=== PATIENT | male | born 1990 | race Caucasian/White ===

== ENCOUNTER 2019-10-24 15:43 | Emergency (ER) | payer OTHER, MEDICAID, SELFPAY ==
[2019-10-24 15:49] VITALS: BP 139/80; PULSE 92; RESP 18; TEMP 36.3; O2SAT 98; BMI 39.3
--- NOTE | 2019-10-24 15:56 | DI.RAD.S_ITS ---
PROCEDURE: XR CHEST 2V INDICATIONS: COUGH 4 DAYS TECHNIQUE: 2 views of the chest were acquired. COMPARISON: None. FINDINGS: Surgical changes and devices: None. Lungs and pleura: Lungs are clear. No pleural effusions or pneumothorax. Mediastinum: Mediastinal contours are normal. Heart size is normal. Bones and chest wall: No suspicious bony abnormalities. Soft tissues appear unremarkable. IMPRESSION: No acute cardiopulmonary process is evident. Dictated by: Demetris Castillo M.D. on 10/24/2019 at 15:28 Approved by: Demetris Castillo M.D. on 10/24/2019 at 15:31
[2019-10-24 16:39] LABS: Influenza A - CEPHEID Flu A NEGATIVE (NEGATIVE); Influenza B - CEPHEID Flu B NEGATIVE (NEGATIVE)
[2019-10-24] MEDS: ALBUTEROL/IPRATROPIUM 3 ML AMPUL INH (19:11)
[2019-10-24 19:15] VITALS: PULSE 91; RESP 20; O2SAT 95
[2019-10-24] MEDS: predniSONE 20 MG TABLET 40 MG PO (19:40)
--- NOTE | 2019-10-24 19:49 | PC.NURSE ---
Addendum entered by Zoraida Malik R.N. 10/24/19 19:56: Lung sounds grossly clear, occasional wheeze Original Note: MDI teaching done by RT Talbert pt verbalized understanding.
[2019-10-24 19:53] VITALS: BP 146/86; PULSE 85; RESP 16; TEMP 36.9; O2SAT 98
--- NOTE | 2019-10-24 20:48 | ED_ITS ---
HPI - URI/Sore Throat <ISIS Hill - Last Filed: 10/24/19 20:53> General Chief Complaint: Upper Respiratory Symptoms Stated Complaint: SOB COUGH MUCUS IN THE CHEST Time Seen by Provider: 10/24/19 18:57 Source: patient Mode of arrival: Ambulatory Limitations: no limitations History of Present Illness HPI Narrative: The patient is a 28-year-old male nonsmoker with history asthma who presents with a chief complaint of a cough for for 5 days. He is using his albuterol, not always with a spacer. He denies any fevers, states he feels as though his cough is stuck in his chest. Complains of transient sore throat and ear pain. States that his chest hurts when he coughs. He does take QVAR. He has not followed up with primary care provider. 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 Denies any abdominal pain nausea vomiting or diarrhea. Related Data Home Medications Medication Instructions Recorded Confirmed albuterol sulfate [Ventolin HFA] 1 puff INHALATION PRN PRN #0 08/21/17 10/24/19 lansoprazole 30 mg PO DAILY #0 08/21/17 10/24/19 beclomethasone dipropionate [Qvar 1 inh INHALATION BID 10/24/19 10/24/19 RediHaler] betamethasone dipropionate 1 applic TOPICAL DIRECTED 10/24/19 10/24/19 escitalopram oxalate 10 mg PO DAILY 10/24/19 levothyroxine 25 mcg PO DAILY 10/24/19 10/24/19 Previous Rx's Medication Instructions Recorded albuterol sulfate 2.5 mg/0.5 mL 2.5 mg INHALATION Q4-6H #30 each 07/01/19 solution for nebulization prednisone 40 mg PO DAILY #10 tab 10/24/19 Allergies Allergy/AdvReac Type Severity Reaction Status Date / Time ciprofloxacin [From CIPRO] Allergy Unknown Verified 10/24/19 15:49 sulfamethoxazole Allergy Unknown Verified 10/24/19 15:49 [From BACTRIM] trimethoprim [From BACTRIM] Allergy Unknown Verified 10/24/19 15:49 Review of Systems <ISIS Hill - Last Filed: 10/24/19 20:53> Review of Systems Narrative: GENERAL: Denies chills, fatigue, malaise, fever, sweats. HEENT: See HPI RESPIRATORY: See HPI CARDIOVASCULAR: Denies chest pain, palpitations, orthopnea, edema, GASTROINTESTINAL: Denies nausea, vomiting, abdominal pain, diarrhea, constipation, melena. : Denies dysuria, frequency, incontinence, hematuria, urinary retention. MUSCULOSKELETAL: denies weakness, joint pain, or bony pain SKIN: Denies rash, skin lesions, or other NEUROLOGIC: Denies weakness, headache, numbness, change in speech, confusion, seizures, incoordination. PSYCHIATRIC: No concerning psychosocial issues. 12 point review of systems is negative except for those stated above Patient History [facility] - Last Filed: 10/24/19 20:53> Social History Smoking Status: Never smoker Smoking Status: Never smoker Substance Use Type: does not use Exam <[facility] - Last Filed: 10/24/19 20:53> Narrative Exam Narrative: GENERAL: This is a well-nourished, well-developed patient, no acute distress HEAD: Atraumatic. Normocephalic. No temporal or scalp tenderness. EYES: Pupils equal round and reactive. Extraocular motions intact. No scleral icterus. No injection or drainage. ENT: Nose without bleeding, purulent drainage or septal hematoma. Throat without erythema, tonsillar hypertrophy or exudate. Uvula midline. Airway patent. Bilateral TMs pearly leary. NECK: Trachea midline. No JVD or lymphadenopathy. Supple, nontender, no meningeal signs. CARDIOVASCULAR: Regular rate and rhythm RESPIRATORY: Diffuse expiratory wheezes to auscultation. Breath sounds equal bilaterally. No rales or rhonchi. Slight cough on exam. GASTROINTESTINAL: Abdomen soft, non-tender, nondistended. No hepato- splenomegaly, or palpable masses. No guarding. EXTREMITIES: No clubbing, cyanosis, or edema. No joint tenderness, effusion, or edema noted. BACK: Nontender without deformity or crepitance. No flank tenderness. NEURO: AOx3. SKIN: No rash or erythema. Initial Vital Signs Initial Vital Signs: Vital Signs Temperature 97.4 F L 10/24/19 15:49 Pulse Rate 92 H 10/24/19 15:49 Respiratory Rate 18 10/24/19 15:49 Blood Pressure 139/80 10/24/19 15:49 Pulse Oximetry 98 10/24/19 15:49 <Bill Parker DO - Last Filed: 10/24/19 22:07> Initial Vital Signs Initial Vital Signs: Vital Signs Temperature 97.4 F L 10/24/19 15:49 Pulse Rate 92 H 10/24/19 15:49 Respiratory Rate 18 10/24/19 15:49 Blood Pressure 139/80 10/24/19 15:49 Pulse Oximetry 98 10/24/19 15:49 Course <ISIS Hill - Last Filed: 10/24/19 20:53> Orders Ordered: ED Orders 10/24/19 15:56 XR chest 2V Stat 10/24/19 16:00 Flu test [Influenza A & B (PCR)] Stat Discontinued Medications Albuterol/Ipratropium (Duoneb) 3 ml INH NOW ONE Stop: 10/24/19 19:08 Last Admin: 10/24/19 19:11 Dose: 3 ml Documented by: KRISTI Prednisone (Deltasone) 40 mg PO NOW ONE Stop: 10/24/19 19:10 Last Admin: 10/24/19 19:40 Dose: 40 mg Documented by: NICHOLAS Vital Signs Vital signs: Vital Signs - 8 hr 10/24/19 15:49 10/24/19 19:15 10/24/19 19:53 Temperature 97.4 F L 98.5 F Pulse Rate 92 H 91 H 85 Respiratory Rate 18 20 16 Blood Pressure 139/80 Blood Pressure [Right Arm] 146/86 H Pulse Oximetry 98 95 98 <DO Sarah Miguel Last Filed: 10/24/19 22:07> Orders Ordered: ED Orders 10/24/19 15:56 XR chest 2V Stat 10/24/19 16:00 Flu test [Influenza A & B (PCR)] Stat Discontinued Medications Albuterol/Ipratropium (Duoneb) 3 ml INH NOW ONE Stop: 10/24/19 19:08 Last Admin: 10/24/19 19:11 Dose: 3 ml Documented by: KRISTI Prednisone (Deltasone) 40 mg PO NOW ONE Stop: 10/24/19 19:10 Last Admin: 10/24/19 19:40 Dose: 40 mg Documented by: NICHOLAS Vital Signs Vital signs: Vital Signs - 8 hr 10/24/19 15:49 10/24/19 19:15 10/24/19 19:53 Temperature 97.4 F L 98.5 F Pulse Rate 92 H 91 H 85 Respiratory Rate 18 20 16 Blood Pressure 139/80 Blood Pressure [Right Arm] 146/86 H Pulse Oximetry 98 95 98 MDM - URI/Sore Throat <VALERY Hill - Last Filed: 10/24/19 20:53> Lab Data Labs: Lab Results 10/24/19 Range/Units 16:00 Influenza A (RT-PCR) Flu a negative (NEGATIVE) Influenza B (RT-PCR) Flu b negative (NEGATIVE) Imaging Data Chest x-ray: Radiologist's Impression: [address] [place] [id number] XRay Report Signed Patient: Paco Steel TMR#: [id number] : 1990Acct:[id number] Age/Sex: 28 / MDate of Service: 10/24/19 Loc: ED Accession Number: [id number] Procedure: XR chest 2V Ordering Provider: Megan Pace D.O. PROCEDURE: XR CHEST 2V INDICATIONS: COUGH 4 DAYS TECHNIQUE: 2 views of the chest were acquired. COMPARISON: None. FINDINGS: Surgical changes and devices: None. Lungs and pleura: Lungs are clear. No pleural effusions or pneumothorax. Mediastinum: Mediastinal contours are normal. Heart size is normal. Bones and chest wall: No suspicious bony abnormalities. Soft tissues appear unremarkable. IMPRESSION: No acute cardiopulmonary process is evident. Dictated by: Demetris Castillo M.D. on 10/24/2019 at 15:28 Approved by: Demetris Castillo M.D. on 10/24/2019 at 15:31 [facility] Narrative Medical decision making narrative: The patient is a 28-year-old male who presents with a chief complaint of worsening wheezing and concern for fluid pneumonia. Flu test negative. X-ray shows no pneumonia. He is hemodynamically stable the emergency department. Did receive therapy from respiratory therapy as well as a nebulizer. Discussed at length using a spacer with every inhaler administration. Did do a burst of steroids. Discussed at length follow up with primary care provider coming back to the emergency department for any acute concerns such as inability keep down fluids or severe difficulty breathing. Patient has no questions or concerns upon discharge and states understanding of return precautions as well as follow-up care. <Bill Parker DO - Last Filed: 10/24/19 22:07> Lab Data Labs: Lab Results 10/24/19 Range/Units 16:00 Influenza A (RT-PCR) Flu a negative (NEGATIVE) Influenza B (RT-PCR) Flu b negative (NEGATIVE) Discharge Plan Departure Patient Disposition: Home Clinical Impression: Asthma exacerbation Qualifiers: Asthma severity: unspecified severity Asthma persistence: intermittent Qualified Code(s): J45.21 - Mild intermittent asthma with (acute) exacerbation Discharge Date/Time: 10/24/19 20:10 Instructions: DI for Asthma -- Adult, How to Use Metered-Dose Inhalers Activity Restrictions/Additional Instructions: I sent a prescription of prednisone to [facility] in [place] Please start this tomorrow. Please also use a spacer with your inhalers all the time. Please follow-up with primary care provider in the next few days Please come back to the emergency department for any acute concerns Prescriptions: New prednisone 20 mg tablet 40 mg PO DAILY Qty: 10 RF: 0 No Action albuterol sulfate 2.5 mg/0.5 mL solution for nebulization 2.5 mg INHALATION Q4-6H Qty: 30 RF: 0 lansoprazole 30 MG capsule,delayed release(DR/EC) 30 mg PO DAILY Qty: 0 RF: 0 albuterol sulfate [Ventolin HFA] 90 MCG/PUFF HFA aerosol inhaler 1 puff inhalation PRN PRN (Reason: Shortness Of Breath) Qty: 0 RF: 0 levothyroxine 25 mcg tablet 25 mcg PO DAILY RF: 0 betamethasone dipropionate 0.05 % cream 1 applic TOPICAL DIRECTED RF: 0 escitalopram oxalate 10 mg tablet 10 mg PO DAILY RF: 0 Qvar RediHaler 80 mcg/actuation HFA aerosol breath activated 1 inh INHALATION BID RF: 0 Referrals: Jolly Hernandez DO [Non-Staff] - <Bill Parker DO - Last Filed: 10/24/19 22:07> Sign Out Provider Sign Out Attestation: Dr Parker Co-Sign Statement: I was available for consultation during this patient's emergency department visit. This chart is signed by myself for administrative purposes only. I did not have direct contact with this patient during this visit. They were seen independently by the APC.
== END 2019-10-24 20:10 | disposition home or self-care (01) ==
PROVIDERS: Emergency Medicine; Emergency Provider Nurse Practitioner Family
DX: J45.21 Mild intermittent asthma with (acute) exacerbation (principal); R05 Cough
CPT/HCPCS: 71046; 87502; 94640; 99283

== ENCOUNTER 2025-01-10 08:29 | Emergency (ER) | payer OTHER, SELFPAY ==
[2025-01-10] VITALS (11 sets, daily range): BP systolic 121–156; BP diastolic 75–92; PULSE 61–91; RESP 11–29; TEMP 37.1; O2SAT 98–100
--- NOTE | 2025-01-10 08:38 | EKG_ITS ---
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
--- NOTE | 2025-01-10 08:38 | ED.CHESTPAIN ---
HPI - Chest Pain General Chief Complaint: Dizziness Stated Complaint: Pain left arm , threw up EMT said no heart attack Time Seen by Provider: 01/10/25 08:35 Source: patient Mode of arrival: Ambulatory Limitations: no limitations History of Present Illness HPI narrative: Patient brought self here for complaints of left arm pain that has improved with continued nausea though. Had near-syncope. Patient was in the shower this morning when this occurred. Ambulance was called he states and did evaluation. Patient denies any chest pain, no back pain. No abdominal pain. Patient is still feeling nauseous. There is family history of coronary artery disease. Patient does not have any history of hypertension hyperlipidemia. Patient does not smoke Related Data Home Medications Medication Instructions Recorded Confirmed albuterol sulfate 90 mcg/actuation 1 puff inhalation PRN PRN 08/21/17 12/10/21 aerosol inhaler (Ventolin HFA) Shortness Of Breath ##0 lansoprazole 30 mg capsule,delayed 30 mg PO DAILY ##0 08/21/17 12/10/21 release beclomethasone dipropionate 80 1 inh inhalation BID 10/24/19 12/10/21 mcg/actuation HFA breath activated aerosol (Qvar RediHaler) betamethasone dipropionate 0.05 % 1 applic topical DIRECTED 10/24/19 12/10/21 topical cream escitalopram oxalate 10 mg tablet 10 mg PO DAILY 10/24/19 12/10/21 levothyroxine 25 mcg tablet 25 mcg PO DAILY 10/24/19 12/10/21 Previous Rx's Medication Instructions Recorded albuterol sulfate 2.5 mg/0.5 mL 2.5 mg (0.5 mL) inhalation Q4-6H 07/01/19 solution for nebulization Shortness of breath or wheezing 3 doses #30 ea prednisone 20 mg tablet 40 mg (2 x 20 mg) PO DAILY #10 tabs 10/24/19 baclofen 20 mg tablet 20 mg PO TID PRN pain (scale score 01/10/25 4-6) #20 tabs Allergies Allergy/AdvReac Type Severity Reaction Status Date / Time ciprofloxacin [From CIPRO] Allergy Unknown Verified 01/10/25 08:35 sulfamethoxazole Allergy Unknown Verified 01/10/25 08:35 [From BACTRIM] trimethoprim [From BACTRIM] Allergy Unknown Verified 01/10/25 08:35 Review of Systems Review of Systems Narrative: GENERAL: Negative chills, fatigue, malaise, fever, sweats. HEENT: Negative sinus pain, ear pain, sore throat RESPIRATORY: Negative dyspnea, cough CARDIOVASCULAR: Negative chest pain, palpitations GASTROINTESTINAL: Negative vomiting, positive nausea, negative abdominal pain : Negative dysuria, frequency, hematuria MUSCULOSKELETAL: Positive muscle or bony pain, negative back pain SKIN: Negative rash, skin lesions NEUROLOGIC: Negative weakness, numbness, positive dizziness ROS Unobtainable: All systems reviewed & are unremarkable except as noted in HPI and below Patient History Social History Smoking Status: Unknown if ever smoked Smoking Status: Unknown if ever smoked Exam Narrative Exam Narrative: GENERAL: in no distress, not toxic not dyspneic HEAD: Normocephalic. EYES: Pupils equal round ENT: Mucous membranes moist. NECK: Trachea midline. There is reproducible tenderness at the paracervical muscles at the lower portion, no midline tenderness or step-off. CARDIOVASCULAR: Regular rate and rhythm RESPIRATORY: Clear to auscultation. Breath sounds equal bilaterally. No wheezes, rales, or rhonchi., chest nontender GASTROINTESTINAL: Abdomen soft, non-tender EXTREMITIES: No gross deformities. BACK: No flank tenderness. NEURO: AOx4. Clear speech, no facial droop light touch intact bilateral face and hands. Strong equal foreign law consultant. Strong radial pulses. Hands warm soft and pink. SKIN: Warm and dry PSYCH: Is anxious, is cooperative Initial Vital Signs Initial Vital Signs: Vital Signs Temperature 98.7 F 01/10/25 08:30 Pulse Rate 91 H 01/10/25 08:30 Respiratory Rate 13 01/10/25 08:30 Blood Pressure 148/92 H 01/10/25 08:30 Pulse Oximetry 100 01/10/25 08:30 Oxygen Delivery Method Room Air 01/10/25 08:30 Scores HEART Score Heart Score history: Slightly Suspicious Heart Score EKG: Normal Heart Score Age: < 45 years old Heart Score risk factors: 1-2 risk factors Heart Score troponin: < or = to normal limit Heart Score Total: 1 Course Orders Ordered: ED Orders 01/10/25 08:37 XR chest 1V Stat EKG-12 Lead Stat 01/10/25 08:38 Complete Blood Count AUTO DIFF Stat Comprehensive Metabolic Panel Stat D Dimer Stat Prothrombin Time INR Stat Troponin & CK Cardiac Panel Stat 01/10/25 08:45 Urine Drug Screen, Rapid Stat 01/10/25 09:10 CT angio chest abdomen pelvis Stat 01/10/25 10:23 Troponin & CK Cardiac Panel Stat Discontinued Medications Sodium Chloride (Normal Saline 0.9%) 1,000 mls @ 1,000 mls/hr IV BOLUS ONE Stop: 01/10/25 09:41 Last Infusion: 01/10/25 09:43 Dose: Infused Documented By: Admin: 01/10/25 08:48 Dose: 1,000 mls/hr Documented By: ENRRIQUE Ketorolac Tromethamine (Ketorolac 30 Mg/Ml Vial) 15 mg IV NOW ONE Stop: 01/10/25 11:37 Last Admin: 01/10/25 11:48 Dose: 15 mg Documented By: DON Methylprednisolone (Methylprednisolone 125 Mg/2 Ml Vial) 125 mg IV NOW ONE Stop: 01/10/25 11:37 Last Admin: 01/10/25 11:54 Dose: 125 mg Documented By: DON Ondansetron HCl (Ondansetron 4 Mg/2 Ml Inj) 4 mg IV NOW ONE Stop: 01/10/25 08:38 Last Admin: 01/10/25 08:48 Dose: 4 mg Documented By: ENRRIQUE Vital Signs Vital signs: Vital Signs - 8 hr 01/10/25 09:00 01/10/25 09:00 01/10/25 09:30 Pulse Rate 73 80 Respiratory Rate 14 29 H Blood Pressure 138/75 Pulse Oximetry 98 100 01/10/25 09:45 01/10/25 09:45 01/10/25 10:00 Pulse Rate 71 Respiratory Rate 20 Blood Pressure 136/81 133/75 Pulse Oximetry 99 01/10/25 10:00 01/10/25 10:29 01/10/25 10:29 Pulse Rate 68 62 Respiratory Rate 16 20 Blood Pressure 137/91 H Pulse Oximetry 99 99 01/10/25 10:30 01/10/25 10:30 01/10/25 11:00 Pulse Rate 61 63 Respiratory Rate 17 11 L Blood Pressure 138/85 Pulse Oximetry 100 98 01/10/25 11:00 01/10/25 11:30 01/10/25 11:30 Pulse Rate 63 Respiratory Rate 14 Blood Pressure 126/76 121/76 Pulse Oximetry 99 MDM - Chest Pain Lab Data 01/10/25 08:38 01/10/25 08:38 Labs: Lab Results 01/10/25 01/10/25 01/10/25 Range/Units 08:38 08:45 10:23 WBC 5.6 (4.5-11.0) X10^3/uL RBC 5.14 (4.5-5.9) X10^6/uL Hgb 15.7 (13.5-17.5) g/dL Hct 45.6 (41-53) % MCV 88.7 (80-100) fL MCH 30.6 (26-34) PG MCHC 34.4 (30-36) % RDW 12.9 (11.6-14.8) % Plt Count 280 (150-400) X10^3/uL Neut % (Auto) 56.5 (50-75) % Lymph % (Auto) 27.9 (25-40) % [place] % (Auto) 8.9 (3-14) % Eos % (Auto) 5.4 H (2-4) % Baso % (Auto) 1.3 (0-2) % Neut # (Auto) 3200 (2816-9083) /uL Lymph # (Auto) 1600 (8337-4815) /uL [place] # (Auto) 500 (0-900) /uL Eos # (Auto) 300 (0-450) /uL Baso # (Auto) 100 (0-100) /uL PT 11.9 (9.4-12.5) SECONDS INR 1.1 (0.9-1.3) D-Dimer < 215 (<500) ng/ml Sodium 142 (137-145) mmol/L Potassium 3.9 (3.4-5.1) mmol/L Chloride 107 (98-107) mmol/L Carbon Dioxide 25 (22-32) mmol/L BUN 17 (9-20) mg/dL Creatinine 1.13 (0.66-1.25) mg/dL Estimated GFR > 60 (>60) mL/min BUN/Creatinine Ratio 15.0 (6-22) Glucose 96 (70-99) mg/dL Calcium 9.5 (8.4-10.2) mg/dL Total Bilirubin 0.6 (0.2-1.3) mg/dL AST 30 (17-59) IU/L ALT 35 (<50) IU/L Alkaline Phosphatase 53 (38-126) U/L Total Creatine Kinase 122 106 (55-170) U/L Troponin I < 0.012 < 0.012 (0.01-0.034) ng/mL Total Protein 7.6 (6.3-8.2) g/dL Albumin 4.7 (3.5-5.0) g/dL Globulin 2.9 (1.7-4.1) g/dL Albumin/Globulin Ratio 1.6 (1.0-2.8) U Opiates 300ng/mL cut Negative (Negative) Ur Oxycodone Screen Negative (Negative) Urine Methadone Screen Negative (Negative) Ur Barbiturates Screen Negative (Negative) U Tricyclic Antidepress Negative (Negative) Ur Phencyclidine Scrn Negative (Negative) Ur Amphetamines Screen Negative (Negative) U Methamphetamines Scrn Negative (Negative) Ur MDMA Scrn (Ecstasy) Negative (Negative) U Benzodiazepines Scrn Negative (Negative) Urine Cocaine Screen Negative (Negative) U Marijuana (THC) Screen Negative (Negative) Urine pH Normal (Normal) Urine Specific [place] Normal (Normal) Ur Creatinine Normal (Normal) Imaging Data Chest x-ray: Radiologist's Impression: [address] [address] XRay Report Signed Patient: Paco Steel MR#: [id number] : 1990 Acct:[id number] Age/Sex: 34 / M Date of Service: 01/10/25 Loc: ED Accession Number: [id number] Procedure: XR chest 1V Ordering Provider: Chon Landa MD PROCEDURE: XR CHEST 1V INDICATIONS: chest pain TECHNIQUE: One view of the chest was acquired. COMPARISON: [facility], , XR CHEST 2V, 10/24/2019, 16:05. FINDINGS: Surgical changes and devices: None. Lungs and pleura: Lungs are clear. No pleural effusions or pneumothorax. Mediastinum: Mediastinal contours appear normal. Heart size is normal. Bones and chest wall: No suspicious bony lesions. Overlying soft tissues appear unremarkable. IMPRESSION: No acute pulmonary process. Dictated by: Silvia Galvin M.D. on 01/10/2025 at 9:21 Approved by: Silvia Galvin M.D. on 01/10/2025 at 9:21 CT scan - chest: Radiologist's Impression: [address] [address] [address] Scan Report Signed Patient: Paco Steel MR#: [id number] : 1990 Acct:[id number] Age/Sex: 34 / M Date of Service: 01/10/25 Loc: ED Accession Number: [id number] Procedure: CT angio chest abdomen pelvis Ordering Provider: Chon Landa MD PROCEDURE: CT ANGIO CHEST ABDOMEN PELVIS INDICATIONS: Chest pain back pain TECHNIQUE: Precontrast 5 mm thick sections acquired from the lung apices to the iliac crests. After the administration of intravenous contrast, 2.5 mm thick sections again acquired from the lung apices to the iliac crests. Maximum intensity projection (MIP) oblique sagittal and coronal reformats were then acquired. For radiation dose reduction, the following was used: automated exposure control. COMPARISON: None. FINDINGS: Image quality: Diagnostic. AORTA: No areas of hemodynamically significant stenosis, vascular occlusion, aneurysmal dilation or dissection. CHEST: Lower Neck: No enlarged lymph nodes. Thyroid: No thyroid nodules which require sonographic evaluation. Axillae: No enlarged lymph nodes. Chest Wall: Unremarkable. Lungs and Pleura: No pneumothorax or pleural effusions. No consolidation or suspicious nodules. Heart: Heart size is normal. No pericardial effusion. Thoracic Vessels: Pulmonary arteries demonstrate normal size. Mediastinum and Elvie: No enlarged lymph nodes. Esophagus: No wall thickening. Minimal hiatal hernia. ABDOMEN: Liver: No solid mass. Gallbladder: No radiopaque gallstones or wall thickening. Biliary ducts: No biliary dilation. Pancreas: No ductal dilation. Spleen: Size is within normal limits. Adrenal Glands: No adrenal nodules. Kidneys and Ureters: No hydronephrosis. No solid mass. No complex renal cystic lesion which requires follow up. Stomach and Bowel: Normal colonic caliber, without significant wall thickening. Peritoneum: No abnormal intraperitoneal fluid. No free air. Ventral Wall: No hernia. Abdominal Nodes: No retroperitoneal or mesenteric adenopathy by size criteria. Vessels: Inferior vena cava is normal in size. PELVIS: Pelvic Organs: Unremarkable. Bladder: Unremarkable. Pelvic Nodes: No enlarged lymph nodes. Miscellaneous: No inguinal hernias are seen. Bones: Unremarkable. IMPRESSION: Aorta demonstrates no areas of hemodynamically significant stenosis, vascular occlusion, aneurysmal dilation or dissection. Hepatic steatosis. Dictated by: Silvia Galvin M.D. on 01/10/2025 at 9:31 Approved by: Silvia Galvin M.D. on 01/10/2025 at 9:41 [facility] Narrative Medical decision making narrative: Patient brought self here for complaints of left arm pain that has improved with continued nausea though. Had near-syncope. Patient was in the shower this morning when this occurred. Ambulance was called he states and did evaluation. Patient denies any chest pain, no back pain. No abdominal pain. Patient is still feeling nauseous. There is family history of coronary artery disease. Patient does not have any history of hypertension hyperlipidemia. Patient does not smoke After history and exam, CBC CMP troponin x2, EKG chest x-ray Zofran normal saline D-dimer [facility] Medical records reviewed: No recent visit for this complaint Differential considered: Includes but not limited to STEMI non-STEMI pulmonary embolism AA or dissection anxiety pericarditis myocarditis Lab Test results independently reviewed as above. Pertinent findings: Troponin less than 0.012 x2, WBC 5.6 hemoglobin 15.7 sodium 142 potassium 3.9 BUN 17 creatinine 1.13 drug screen negative D-dimer less than 215 Independently reviewed EKG normal sinus rhythm rate [address] elevation or depression Imaging studies independently reviewed: Chest x-ray no acute finding, CT angio chest abdomen pelvis no acute finding Consultations: 11:[address] Cardiology [address] Lewis, at this time, patient has low heart score low risk factors and never had chest pain. Patient can follow up with this primary care in the next week for outpatient stress test. Re-evaluations: 11:30 a.m.. Spoke with patient, mother was here but now father is sitting at bedside. Patient does have a primary care to follow up with and to schedule stress test. He will call today for appointment. He describes his left arm numbness radiating from his spine lower neck now. He forgot to mention that he has had neck problems in the past 3 weeks. At his job he is required to sit and hunched over and causes pain to his neck. It does radiate to the right arm as well as the left arm. He has not tried any medications for this. However he does have naproxen at home. He does agree for Solu-Medrol and Toradol before discharge. Discussion: Appropriate for discharge home. Exam is reassuring. Laboratory studies imaging studies reassuring. Patient's arm complaints likely cervical radiculopathy. He does have tenderness spasm to the upper back muscles at the base of the cervical spine area. Never had complaints of chest pain. Patient has low heart score of 1. Diagnosis: Cervical radiculopathy, dizziness Discharge Plan Departure Patient Disposition: Home Clinical Impression: Cervical radiculopathy, Dizziness Instructions: DI for Cervical Radiculopathy, DI for Dizziness-Nonvertigo Activity Restrictions/Additional Instructions: Your exam and laboratory studies and CT scan imaging studies are reassuring at this time. Cardiology service was contacted. Your arm discomfort is possibly from the nerves radiating from the upper spine/neck. You may need outpatient MRI scheduled by your family doctor or physical therapy. Short course of muscle relaxers has been provided for you to help for the neck discomfort. No driving operating machinery when taking this prescription. Please see your family doctor this week for re-evaluation and to schedule outpatient stress test as well, this was recommended by the exercise equipment repair technician. Prescriptions: New baclofen 20 mg tablet 20 mg PO TID PRN (Reason: pain (scale score 4-6)) Qty: 20 0RF No Action albuterol sulfate 2.5 mg/0.5 mL solution for nebulization 2.5 mg INHALATION Q4-6H Qty: 30 0RF lansoprazole 30 MG capsule,delayed release(DR/EC) 30 mg PO DAILY Qty: 0 albuterol sulfate [Ventolin HFA] 90 MCG/PUFF HFA aerosol inhaler 1 puff inhalation PRN PRN (Reason: Shortness Of Breath) Qty: 0 levothyroxine 25 mcg tablet 25 mcg PO DAILY betamethasone dipropionate 0.05 % cream 1 applic TOPICAL DIRECTED escitalopram oxalate 10 mg tablet 10 mg PO DAILY Qvar RediHaler 80 mcg/actuation HFA aerosol breath activated 1 inh INHALATION BID prednisone 20 mg tablet 40 mg PO DAILY Qty: 10 0RF Stand Alone Forms: Patient Portal/API/Survey, Work Release Note
[2025-01-10 08:48] LABS: Add Manual Diff / Slide Review NO; Basophils Absolute Auto 100 /uL (0-100); Basophils Percent Auto 1.3 % (0-2); Eosinophils Absolute Auto 300 /uL (0-450); Eosinophils Percent Auto 5.4 % (2-4); Hematocrit 45.6 % (41-53); Hemoglobin 15.7 g/dL (13.5-17.5); Lymphocytes Absolute Auto 1600 /uL (1100-4500); Lymphocytes Percent Auto 27.9 % (25-40); Mean Corpuscular HGB Conc 34.4 % (30-36); Mean Corpuscular Hemoglobin 30.6 PG (26-34); Mean Corpuscular Volume 88.7 fL (80-100); Monocytes Absolute Auto 500 /uL (0-900); Monocytes Percent Auto 8.9 % (3-14); Neutrophils Absolute Auto 3200 /uL (1500-7000); Neutrophils Percent Auto 56.5 % (50-75); Platelet Count 280 X10^3/uL (150-400); Red Blood Cell Count 5.14 X10^6/uL (4.5-5.9); Red Cell Distribution Width 12.9 % (11.6-14.8); White Blood Cell Count 5.6 X10^3/uL (4.5-11.0)
[2025-01-10] MEDS: ONDANSETRON 4 MG/2 ML INJ IV (08:48)
[2025-01-10] MEDS: SODIUM CHLORIDE 0.9% 1,000 ML 1000 ML IV (08:48)
[2025-01-10 08:54] LABS: Ur Creatinine Normal (Normal); Ur Specific Gravity Normal (Normal); Urine pH Normal (Normal)
[2025-01-10 08:55] LABS: UR Morphine/Opiate cutoff 300 Negative (Negative); Urine Amphetamines Negative (Negative); Urine Barbiturates Negative (Negative); Urine Benzodiazepines Negative (Negative); Urine Cocaine Negative (Negative); Urine MDMA Negative (Negative); Urine Methadone Negative (Negative); Urine Methamphetamines Negative (Negative); Urine Oxycodone Negative (Negative); Urine Phencyclidine Negative (Negative); Urine Tetrahydrocannabinol Negative (Negative); Urine Tricyclic Antidepressant Negative (Negative)
[2025-01-10 09:01] LABS: INR 1.1 (0.9-1.3); Prothrombin Time 11.9 SECONDS (9.4-12.5)
[2025-01-10 09:05] LABS: Alanine Aminotransferase 35 IU/L (<50); Albumin 4.7 g/dL (3.5-5.0); Albumin Globulin Ratio 1.6 (1.0-2.8); Alkaline Phosphatase 53 U/L (38-126); Aspartate Aminotransferase 30 IU/L (17-59); Bilirubin Total 0.6 mg/dL (0.2-1.3); Blood Urea Nitrogen 17 mg/dL (9-20); Calcium 9.5 mg/dL (8.4-10.2); Carbon Dioxide 25 mmol/L (22-32); Chloride 107 mmol/L (98-107); Creatine Kinase 122 U/L (55-170); Estimated Glomerular Filt Rate > 60 mL/min (>60); Globulin 2.9 g/dL (1.7-4.1); Glucose 96 mg/dL (70-99); HEMOLYSIS < 15 (0-50); Potassium 3.9 mmol/L (3.4-5.1); Sodium 142 mmol/L (137-145); Total Protein 7.6 g/dL (6.3-8.2)
[2025-01-10 09:08] LABS: D Dimer < 215 ng/ml (<500)
--- NOTE | 2025-01-10 09:10 | DI.CT.S_ITS ---
PROCEDURE: CT ANGIO CHEST ABDOMEN PELVIS INDICATIONS: Chest pain back pain TECHNIQUE: Precontrast 5 mm thick sections acquired from the lung apices to the iliac crests. After the administration of intravenous contrast, 2.5 mm thick sections again acquired from the lung apices to the iliac crests. Maximum intensity projection (MIP) oblique sagittal and coronal reformats were then acquired. For radiation dose reduction, the following was used: automated exposure control. COMPARISON: None. FINDINGS: Image quality: Diagnostic. AORTA: No areas of hemodynamically significant stenosis, vascular occlusion, aneurysmal dilation or dissection. CHEST: Lower Neck: No enlarged lymph nodes. Thyroid: No thyroid nodules which require sonographic evaluation. Axillae: No enlarged lymph nodes. Chest Wall: Unremarkable. Lungs and Pleura: No pneumothorax or pleural effusions. No consolidation or suspicious nodules. Heart: Heart size is normal. No pericardial effusion. Thoracic Vessels: Pulmonary arteries demonstrate normal size. Mediastinum and Elvie: No enlarged lymph nodes. Esophagus: No wall thickening. Minimal hiatal hernia. ABDOMEN: Liver: No solid mass. Gallbladder: No radiopaque gallstones or wall thickening. Biliary ducts: No biliary dilation. Pancreas: No ductal dilation. Spleen: Size is within normal limits. Adrenal Glands: No adrenal nodules. Kidneys and Ureters: No hydronephrosis. No solid mass. No complex renal cystic lesion which requires follow up. Stomach and Bowel: Normal colonic caliber, without significant wall thickening. Peritoneum: No abnormal intraperitoneal fluid. No free air. Ventral Wall: No hernia. Abdominal Nodes: No retroperitoneal or mesenteric adenopathy by size criteria. Vessels: Inferior vena cava is normal in size. PELVIS: Pelvic Organs: Unremarkable. Bladder: Unremarkable. Pelvic Nodes: No enlarged lymph nodes. Miscellaneous: No inguinal hernias are seen. Bones: Unremarkable. IMPRESSION: Aorta demonstrates no areas of hemodynamically significant stenosis, vascular occlusion, aneurysmal dilation or dissection. Hepatic steatosis. Dictated by: Silvia Galvin M.D. on 01/10/2025 at 9:31 Approved by: Silvia Galvin M.D. on 01/10/2025 at 9:41
[2025-01-10 09:18] LABS: Troponin I < 0.012 ng/mL (0.01-0.034)
[2025-01-10 10:40] LABS: Creatine Kinase 106 U/L (55-170)
[2025-01-10 10:53] LABS: Troponin I < 0.012 ng/mL (0.01-0.034)
[2025-01-10] MEDS: KETOROLAC 30 MG/ML VIAL 15 MG IV (11:48)
[2025-01-10] MEDS: methylPREDNISolone 125 MG/2 ML VIAL IV (11:54)
== END 2025-01-10 11:54 | disposition home or self-care (01) ==
PROVIDERS: Emergency Provider Emergency Medicine
DX: M54.12 Radiculopathy, cervical region (principal); R07.9 Chest pain, unspecified; R42 Dizziness and giddiness
CPT/HCPCS: 36415; 71045; 71275; 74174; 80053; 80305; 82550; 84484; 85025; 85379; 85610; 93005; 93010; 96361; 96374; 96375; 99284; J1885; J2405; J2919; Q9967